=== PATIENT | female | born 1950 | race Caucasian/White ===

== ENCOUNTER 2017-01-02 11:31 | Emergency (ER) | payer MEDICARE ==
[~2017-01-02] VITALS: Ht 165.1 cm; Wt 61.3 kg
[~2017-01-02 11:31] MED LIST: KEP500TA PO; LOVA20TA PO; OXYB5TAB35 PO; VIT D PO
--- NOTE | 2017-01-02 11:33 | ED.REPORT ---
HPI-Seizure Date of Service Jan 02, 2017 ED Provider: Dr. Rao Almazan MD A 66 year old female with a history of seizure disorder, beginning Alzheimer's, low-grade glioma s/p left frontal craniotomy and R breast cancer s/p mastectomy presents to the ED via EMS after a reported seizure that occurred just prior to arrival. The seizure lasted approx. 20 seconds according to patient's daughter. Seizure characteristics include rigidity, foaming at the mouth and dyspnea. Patient was post-ictal for approx. 5 minutes following the episode and the after affects have lasted longer than previous seizures. Recent symptoms over the past week also include hypersomnia and decreased appetite. Patient is currently complaining of fatigue. Daughter reports that the patient's last seizure was in May. She reportedly missed her dose of Keppra last night and has not had any for 24 hours. Nursing Notes Stated Complaint: SEIZURE Nursing Notes Reviewed: Yes Allergies: Coded Allergies: No Known Allergies (Unverified , 04/10/16) Scheduled ([Vit D]) 2,000 IU PO DAILY Levetiracetam (Keppra) 500 Mg Tablet 500 MG PO BID Lovastatin (Lovastatin) 20 Mg Tablet 20 MG PO HS Oxybutynin Chloride ER (Ditropan XL) 5 Mg Tab.er.24 5 MG PO DAILY General Time Seen by Provider: 11:33 Chief Complaint Chief Complaint: Seizure, generalized Hx Obtained From: Patient, Daughter, EMS Arrived By: Ambulance Onset Occurred: Just prior to arrival Symptom Duration: 1 - 15 minutes Progression Since Onset: Gradually improving Associated with: Reports: Confusion post-seizure, Disoriented post-seizure Pertinent Negative: Pt denies other symptoms Recent Healthcare: No recent doctor visit, No recent hospitalization Past Medical History Past Medical History Breast Cancer s/p right mastectomy in February 1990/ chemotherapy/ tamoxifen 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) PCV chemotherapy,carboplatin, and underwent 2nd left frontal craniotomy She has remained free of recurrence from both breast cancer and brain cancer (01/14/15) Seizures Past Surgical History Right mastectomy (1989) Left frontal craniotomy (1991) Smoking History Never Smoker Social History Other Social History: Good social support, Local resident Review of Systems Hypersomnia Decreased appetite Foaming at the mouth during episode Constitutional: Denies: Chills, Fever Respiratory: Reports: Shortness of breath (Dyspnea during episode ) Cardiovascular: Denies: Chest pain Neurologic: Reports: Seizure, Shaking Complete sys rev & neg: except as marked. Physical Exam Initial Vital Signs Vital Signs (First) Date Time Temp Pulse Resp B/P Pulse Ox O2 Delivery O2 Flow Rate FiO2 01/02/17 11:40 36.4 96 13 115/63 97 Room Air Initial VS: Reviewed Head / Eyes: Atraumatic, Normocephalic, PERRL Extremities: Vascular intact, Neuro intact, No swelling, No tenderness Skin: Warm, Dry, No cyanosis General/Constitutional: Awake GENERAL: Post ictal Slow to answer and slow to follow commands Neck: Atraumatic, Supple Respiratory / Chest: Atraumatic, Breath sounds NL, Breath sounds = bilat, No respiratory distress Cardiovascular: Heart rate NL, Regular rhythm, Heart sounds NL Mental Status: Positive: Disoriented to place, Disoriented to time NEURO: Oriented x1 ENT: Atraumatic, Airway patent, Mucous membranes moist, Pharynx NL Interpretation & Diagnostics C-SPINE CT w/o contrast Read by Radiology IMPRESSION: No fracture. Dictated by: Tere Morton M.D. on 01/02/2017 at 12:[address] HEAD w/o contrast Read by Radiology IMPRESSION: 1. Increased, small amount of hemorrhage into the left frontal resection cavity. Findings discussed with Isidro Almazan on 01.02.17 at 1635 hrs. Dictated by: Tere Morton M.D. on 01/02/2017 at 16:33 Lab Results Interpretation Result Diagram: 01/02/17 1145 01/02/17 1145 Test 01/02/17 11:45 White Blood Count 9.0th/mm3 (3.8-10.1) Red Blood Count 4.57mil/mm3 (3.90-5.20) Hemoglobin 13.5g/dL (12.0-15.6) Hematocrit 40.6% (35.0-46.0) Mean Corpuscular Volume 88.8fL (81-100) Mean Corpuscular Hemoglobin 29.5pg (27.0-35.0) Mean Corpuscular Hemoglobin Concent 33.3% (32.0-37.0) Red Cell Distribution Width 12.5% (12.3-15.4) Platelet Count 272bil/L (150-400) Neutrophils (%) (Auto) 32.3% (40-74) Lymphocytes (%) (Auto) 57.6% (14-46) Monocytes (%) (Auto) 8.3% (4-12) Eosinophils (%) (Auto) 1.2% (0-5) Basophils (%) (Auto) 0.3% (0-3) Prothrombin Time 10.0sec (8.1-12.5) Prothromb Time International Ratio 0.94ratio Sodium Level 142mEq/L (134-144) Potassium Level 3.8mEq/L (3.5-5.2) Chloride Level 101mEq/L (97-108) Carbon Dioxide Level 12mmol/L (18-29) Blood Urea Nitrogen 12mg/dL (8-27) Creatinine 0.92mg/dL (0.57-1.00) Estimat Glomerular Filtration Rate 87mL/min (>59) Glucose Level 133mg/dL (60-99) Calcium Level 9.9mg/dL (8.5-10.1) Magnesium Level 2.3mg/dL (1.6-2.6) Total Bilirubin 0.5mg/dL (0.0-1.2) Aspartate Amino Transf (AST/SGOT) 23U/L (0-50) Alanine Aminotransferase (ALT/SGPT) 12U/L (0-32) Alkaline Phosphatase 80U/L (25-165) Total Protein 7.4g/dL (6.4-8.4) Albumin 4.2g/dL (3.4-5.0) ECG Interpretation ECG Interpretation: Sinus Rhythm Rate 91 bpm Low extremity and precordial leads Abnormal R-wave progression Time: 12:17 Interpreted by: ED physician X-Ray Chest Interpretation Chest Xray Interpretation: IMPRESSION: 1. Moderate hiatal hernia. 2. No acute process. Dictated by: Tere Morton M.D. on 01/02/2017 at 13:13 Interpretation / Wet Read by: Interpret - Radiologist CT Head Interpretation IMPRESSION: 1. Small high density focus within the right medial basal ganglia. Finding may represent basal ganglia calcification, but given the asymmetry, hemorrhage versus hemorrhagic metastasis may also be present. 2. Postsurgical sequelae. 3. Findings discussed with Isidro Almazan on 3.26.17 at 1235 hrs. Dictated by: Tere Motron M.D. on 01/02/2017 at 12:31 Study: Head CT no contrast Interpretation / Wet Read by: Interpret - Radiologist Re-Eval/Medical Decision Med Decision/Clinical Course 66-year-old female with a history of low-grade glioma brain cancer treated approximately 20 years ago with 2 surgeries, radiation, and chemotherapy with to subsequent seizures presents after a 30 second seizure in a post ictal state. The seizure resolved spontaneously. Her daughter witnessed the event and notes that she went rigid, stopped breathing, and foamed out of the mouth . Her daughter notes that she has been out of her Keppra for approximately 24 hours and she takes 500 mg twice a day. The radiologist called me after her CT scan was some concern for a small high density focus within the right medial basal ganglia that may represent a basal ganglia calcification but given the asymmetry hemorrhage versus hemorrhagic metastasis could also be present. I discussed these findings with Dr. Marin, neurosurgeon at [facility] who felt that bleeding was less likely and recommended a repeat CT scan in [address] scan showed increased, small amount of hemorrhage into the left frontal resection cavity and the area of concern that was initially seen was stable. I discussed these findings with Dr. Marin who recommended the patient be admitted for observation and was willing to accept the transfer as we do not have neurosurgery backup at [facility]. I also spoke with the ER doctor to give report on the patient. Throughout her ER stay her post ictal state slowly resolved but she then began complaining of headache. She was treated with Tylenol and sent via ALS to [facility]. All of these findings were discussed with the patient and her daughter and they were in agreement with the plan. Vitals remained stable while in the ER and patient had no respiratory compromise. Re-Evaluation/Progress #1: Time of Eval: 13:05 Patient Status: Condition improved Re-Evaluation/Progress Note: Patient's family is informed of the plan after consulting with radiology and [facility]. Re-Evaluation/Progress #2: Time of Eval: 14:08 Patient Status: Condition improved Re-Evaluation/Progress Note: Patient is rechecked and informed of the updated treatment plan. Re-Evaluation/Progress #3: Time of Eval: 17:27 Re-Evaluation/Progress Note: Patient is alert and responsive. She is currently complaining of a headache. She is informed of the updated CT scan results. Re-Evaluation/Progress #4: Time of Eval: 17:34 Patient Status: Condition improved Re-Evaluation/Progress Note: Patient's family is informed of the plan to transfer to [facility]. All of the patient's questions are adressed. They understand and agree with the treatment plan. Consultation #1: Call Returned at: 13:07 Learning And Development Officer: Agrees with eval, Agrees with plan Note: [facility] ED contacted Consultation #2: Consulted With: Neurosurgery Call Returned at: 13:43 Learning And Development Officer: Agrees with eval, Agrees with plan Note: Dr. Marin recommends re-image in 4-6 hrs. If negative, she may be discharged or admitted for observation. Does not believe bleed in this area is likely after reviewing imaging. Neurosurgery is not indicated at this time. Consultation #3: Referral / Consult Name: [facility] Consulted With: Neurosurgery Call Returned at: 17:28 Learning And Development Officer: Will see patient, Agrees with eval, Agrees with plan, Accepts admit Note: Dr. Cintron (ER) accepts admit after reviewing imaging Dr. Cunningham agrees to consult after reviewing imaging Counseled Regarding: Diagnosis, Lab results, Need for transfer Discharge & Departure Impression: Primary Impression: Subarachnoid hemorrhage Additional Impressions: History of brain cancer Seizure Head ache Headache type: unspecified Headache chronicity pattern: acute headache Intractability: not intractable Qualified Code: R51 - Headache Disposition: Transfer, Acute Care Facility (Formerly [facility]) Discharge Condition All VS Reviewed: Yes Condition: Stable Referrals: Melisa Vera MD (PCP) Crit Care Except Billable Proc Time Spent: 30-74 minutes, 195-224 minutes Services Performed: Patient management by me, Time spent at bedside, Reviewing test results, Reviewing imaging, Discussing patient care, Documentation in record, Time with fam/surrogate Scribe Attestation Portions of this note were transcribed by Emelyn Navas. I, Dr. Almazan personally performed the history, physical exam and medical decision-making; I reviewed and confirmed the accuracy of the information in the transcribed note. Signed by: Mike Triana, 01/02/17 1800. copies to: Melisa Vera MD, Gary R DO Jan 02, 2017 11:33 EMELYN NAVAS Jan 02, 2017 11:51
[2017-01-02 11:40] VITALS: BP 115/63; PULSE 96; RESP 13; O2SAT 97
[2017-01-02] MEDS ORDERED: levETIRAcetam Inj 1,000 MG in IV Premix 1 EACH IV ONE (12:00)
--- NOTE | 2017-01-02 12:23 | DRSVH ---
PROCEDURE: CT CERVICAL SPINE WITHOUT CONTRAST ([id number]) INDICATIONS: seizure, h/o brain ca, hit head TECHNIQUE: Noncontrast 3 mm thick sections acquired from the skull base to the T4 level. Sagittal and coronal r eformats were then constructed. For radiation dose reduction, the following was used: automated exp osure control, adjustment of mA and/or kV according to patient size. COMPARISON: None. FINDINGS: Image quality: Excellent. Bones: No fractures or dislocations. Visualized superior ribs are intact. Soft tissues: Prevertebral soft tissues are normal in thickness. No paravertebral hematomas. No ap ical pneumothoraces. IMPRESSION: No fracture. Dictated by: Tere Morton M.D. on 01/02/2017 at 12:17 Approved by: Tere Morton M.D. on 01/02/2017 at 12:21
--- NOTE | 2017-01-02 12:36 | DRSVH ---
PROCEDURE: CT BRAIN WITHOUT CONTRAST ([id number]) INDICATIONS: seizure, h/o brain ca TECHNIQUE: Noncontrast 4.5 mm thick angled axial sections acquired from the foramen magnum to the vertex, with c oronal reformats. COMPARISON: [facility], MR, MR BRAIN W&WO CON, 02/03/2016, 8:37. FINDINGS: Image quality: Excellent. CSF spaces: Basal cisterns are patent. Change in resection cavity involving the left anterior fronta l lobe. The ventricles are symmetric in size and shape. Brain: Left frontal encephalomalacia adjacent to the resection cavity is present, as before. 9 mm reg ion of high density within the right basal ganglia is present. There is cerebral volume loss for age, with resultant ventricular and sulcal prominence. There are periventricular and deep white matter c hronic small vessel ischemic changes. There is intracranial internal carotid artery atherosclerosis. Skull and face: Left frontal craniotomy has been performed. Calvarium and visualized facial bones ot herwise appear intact, without suspicious lesions. Sinuses: Visualized sinuses and mastoids are clear. IMPRESSION: 1. Small high density focus within the right medial basal ganglia. Finding may represent basal gangli a calcification, but given the asymmetry, hemorrhage versus hemorrhagic metastasis may also be presen t. 2. Postsurgical sequelae. 3. Findings discussed with Isidro Almazan on 01.02.17 at 1235 hrs. Dictated by: Tere Morton M.D. on 01/02/2017 at 12:31 Approved by: Tere Morton M.D. on 01/02/2017 at 12:35
[2017-01-02 12:41] LABS: BASOPHILS % (AUTO) 0.3 % (0-3); EOSINOPHILS % (AUTO) 1.2 % (0-5); MONOCYTES % (AUTO) 8.3 % (4-12); Mean Corpuscular Hemoglobin 29.5 pg (27.0-35.0); Mean Corpuscular Volume 88.8 fL (81-100); NEUTROPHILS % (AUTO) 32.3 % (40-74); Platelet Count 272 bil/L (150-400)
[2017-01-02 12:42] LABS: INR 0.94 ratio
[2017-01-02 12:50] LABS: Magnesium 2.3 mg/dL (1.6-2.6)
--- NOTE | 2017-01-02 13:15 | DRSVH ---
PROCEDURE: X-RAY CHEST ONE VIEW, PORTABLE ([id number]) INDICATIONS: seizure TECHNIQUE: One view of the chest was acquired. COMPARISON: None. FINDINGS: Surgical changes and devices: Right axilla surgical clips. Lungs and pleura: No pleural effusions or pneumothorax. Lungs are clear. Mediastinum: Moderate hiatal hernia. Mediastinal contours appear otherwise normal. Heart size is no rmal. Bones and chest wall: No suspicious bony lesions. Overlying soft tissues appear unremarkable. IMPRESSION: 1. Moderate hiatal hernia. 2. No acute process. Dictated by: Tere Morton M.D. on 01/02/2017 at 13:13 Approved by: Tere Morton M.D. on 01/02/2017 at 13:13
[2017-01-02 13:27] VITALS: BP 112/70; PULSE 80; RESP 18; O2SAT 99
[2017-01-02 15:22] VITALS: BP 109/51; PULSE 74; RESP 20; O2SAT 100
--- NOTE | 2017-01-02 16:38 | DRSVH ---
PROCEDURE: CT BRAIN WITHOUT CONTRAST ([id number]) INDICATIONS: f/u possible head bleed TECHNIQUE: Noncontrast 4.5 mm thick angled axial sections acquired from the foramen magnum to the vertex, with c oronal reformats. COMPARISON: [facility], MR, MR BRAIN W&WO CON, 02/03/2016, 8:37. [facility], CT, CT BRAIN WO CON, 01/02/2017, 12:08. FINDINGS: Image quality: Excellent. CSF spaces: Basal cisterns are patent. No extra-axial fluid collections. The ventricles are symmet roman in size and shape. Brain: Left frontal resection cavity is present, as before. Surrounding low density, consistent with vasogenic edema/encephalomalacia is unchanged. There is increased layering high density material with in the resection cavity measuring 9 mm thickness, which was previously attributed to thickened scar. Previously seen high density focus within the right basal ganglia is unchanged. There is cerebral vol ume loss for age, with resultant ventricular and sulcal prominence. There are periventricular and de ep white matter chronic small vessel ischemic changes. There is intracranial internal carotid artery atherosclerosis. Skull and face: Left frontal craniotomy. Calvarium and visualized facial bones otherwise appear inta ct, without suspicious lesions. Sinuses: Visualized sinuses and mastoids are clear. IMPRESSION: 1. Increased, small amount of hemorrhage into the left frontal resection cavity. Findings discussed w swati Almazan on 01.02.17 at 1635 hrs. Dictated by: Tere Morton M.D. on 01/02/2017 at 16:33 Approved by: Tere Morton M.D. on 01/02/2017 at 16:36
[2017-01-02 16:58] VITALS: BP 115/60; PULSE 70; RESP 16; O2SAT 98
[2017-01-02 18:10] VITALS: BP 115/60; PULSE 70; RESP 16; O2SAT 98
== END 2017-01-02 18:11 | disposition short-term general hospital (02) ==
LOC: SED 11:31
DX: I60.9 Nontraumatic subarachnoid hemorrhage, unspecified (principal); G40.909 Epilepsy, unspecified, not intractable, without status epilepticus; Z85.841 Personal history of malignant neoplasm of brain; Z90.09 Acquired absence of other part of head and neck; Z85.3 Personal history of malignant neoplasm of breast; Z90.11 Acquired absence of right breast and nipple
CPT/HCPCS: 36415; 70450; 71010; 72125; 80053; 80299; 83735; 85025; 85610; 93005; 96374; 99291; 99292; J1953

== ENCOUNTER 2017-02-07 11:20 | Inpatient (IN) | payer MEDICARE ==
[~2017-02-07] VITALS: Ht 157.5 cm; Wt 59.7 kg
[2017-02-07] VITALS (19 sets, daily range): BP systolic 97–142; BP diastolic 53–110; PULSE 55–73; RESP 12–30; O2SAT 95–100
--- NOTE | 2017-02-07 11:23 | ED.REPORT ---
HPI-Neurologic Deficit Date of Service February 07, 2017 ED Provider: Dr. Kraus Pt is a 66 y/o female w/ a hx of breast and brain CA s/p surgical interventions , reportedly in remission since 2014, significant dementia, presenting to the ED with her son-in-law c/o shakiness onset today. Per the son, there has been no seizure-like activity today although he has observed labored breathing and saying it hurts to swallow. The patient does not want to answer questions at time of interview but eventually reports moderate-severe chest heaviness/pain, nausea, and shortness of breath. She denies diarrhea, dysuria, vomiting, headache, fever, cough, focal numbness or weakness, speech changes, vision changes. The patient slept most of the day yesterday which is unusual. She was seen here on January 02 and was found to have a SAH and was transferred to [facility]. Per the Son-in-law, due to the SAH she does not take aspirin and is not on anticoagulants. Nursing Notes Stated Complaint: SEIZURE,HEAD Nursing Notes Reviewed: Yes Allergies: Coded Allergies: No Known Allergies (Unverified , 04/10/16) Scheduled ([Vit D]) 2,000 IU PO DAILY Levetiracetam (Keppra) 500 Mg Tablet 500 MG PO BID Lovastatin (Lovastatin) 20 Mg Tablet 20 MG PO HS Oxybutynin Chloride ER (Ditropan XL) 5 Mg Tab.er.24 5 MG PO DAILY General Time Seen by Provider: 11:25 Chief Complaint Other (shaking) Hx Obtained From: Patient, Son Arrived By: Walk-in Sudden in Onset?: No Onset Occurred: 1 - 4 hours ago Symptom Duration: Since onset Progression Since Onset: Constant Location: : Chest Quality: Heaviness Severity: Current: Moderate Severity: Maximum: Moderate Past Medical History Past Medical History Breast Cancer s/p right mastectomy in February 1990/ chemotherapy/ tamoxifen 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) PCV chemotherapy,carboplatin, and underwent 2nd left frontal craniotomy She has remained free of recurrence from both breast cancer and brain cancer (01/14/15) Seizures Past Surgical History Right mastectomy (1989) Left frontal craniotomy (1991) Smoking History Never Smoker Social History Other Social History: Good social support, Local resident Ambulatory Status Independent Review of Systems Constitutional: Reports: Fatigue, Denies: Chills, Fever Respiratory: Reports: Shortness of breath, Denies: Non-productive cough Cardiovascular: Reports: Chest pain GI: Reports: Dysphagia, Nausea, Denies: Abdominal pain, Diarrhea, Vomiting Neurologic: Reports: Shaking, Denies: Confusion, Problem walking, Seizure, Slurred speech, Spinning sensation, Unable to speak, Vision change Complete sys rev & neg: except as marked. Male: Denies Dysuria, Denies Flank pain Physical Exam Initial Vital Signs Vital Signs (First) Date Time Temp Pulse Resp B/P Pulse Ox O2 Delivery O2 Flow Rate FiO2 02/07/17 11:30 69 20 142/94 100 Nasal Cannula 02/07/17 11:31 35.8 02/07/17 13:15 4 Initial VS: Reviewed, Vital signs abnormal Abdomen / GI: Soft, Non-tender Extremities: Vascular intact, Neuro intact, No swelling Skin: Warm, Dry, No cyanosis General/Constitutional: Awake, Cooperative Alertness: Positive: Confused Distress / Hydration: Positive: Distress moderate Appearance / Presentation: Positive: In pain, Uncomfortable Head / Eyes: Atraumatic, Normocephalic, PERRL Respiratory / Chest: Breath sounds NL, Breath sounds = bilat, No respiratory distress, No rales, No rhonchi, No wheezing, No retractions, No stridor Cardiovascular: Heart rate NL, Regular rhythm, Heart sounds NL, No gallop, No murmurs, No rubs, Peripheral circulation NL Neurologic: Speech NL, No motor deficits, No sensory deficits Mental Status: Positive: Confused Tremulous Interpretation & Diagnostics Lab Results Interpretation Result Diagram: 02/07/17 1142 02/07/17 1142 Test 02/07/17 11:42 02/07/17 11:43 White Blood Count 9.3th/mm3 (3.8-10.1) Red Blood Count 4.51mil/mm3 (3.90-5.20) Hemoglobin 13.5g/dL (12.0-15.6) Hematocrit 39.2% (35.0-46.0) Mean Corpuscular Volume 86.9fL (81-100) Mean Corpuscular Hemoglobin 29.9pg (27.0-35.0) Mean Corpuscular Hemoglobin Concent 34.4% (32.0-37.0) Red Cell Distribution Width 12.7% (12.3-15.4) Platelet Count 268bil/L (150-400) Neutrophils (%) (Auto) 65.0% (40-74) Lymphocytes (%) (Auto) 28.1% (14-46) Monocytes (%) (Auto) 6.1% (4-12) Eosinophils (%) (Auto) 0.3% (0-5) Basophils (%) (Auto) 0.3% (0-3) Prothrombin Time 10.0sec (8.1-12.5) Prothromb Time International Ratio 0.94ratio Activated Partial Thromboplast Time 21.5sec (22.8-33.0) D-Dimer < 0.50mg/L FEU (<0.50) Sodium Level 141mEq/L (134-144) Potassium Level 3.6mEq/L (3.5-5.2) Chloride Level 101mEq/L (97-108) Carbon Dioxide Level 19mmol/L (18-29) Blood Urea Nitrogen 11mg/dL (8-27) Creatinine 0.78mg/dL (0.57-1.00) Estimat Glomerular Filtration Rate 105mL/min (>59) Glucose Level 151mg/dL (60-99) Calcium Level 9.4mg/dL (8.5-10.1) Total Bilirubin 0.6mg/dL (0.0-1.2) Aspartate Amino Transf (AST/SGOT) 25U/L (0-50) Alanine Aminotransferase (ALT/SGPT) 13U/L (0-32) Alkaline Phosphatase 79U/L (25-165) Troponin T 0.095ug/L (0.0-0.011) Total Protein 7.1g/dL (6.4-8.4) Albumin 4.5g/dL (3.4-5.0) Hold Buckley Top Tube Received (Received) ECG Interpretation ECG Interpretation: 3 EKGs were taken in quick succession to attempt to obtain higher quality tracing. EKGs are taken in the presence of chest pain. 1. Sinus rhythm. Severe motion artifact - ST elevation V2, V3, V4 2. Sinus rhythm. ST elevation V2, V3, V4. Inferior leads may have ST depression but not able to be evaluated due to severe motion artifact. 3. Sinus rhythm. Minor ST elevation with ST depressions inferiorly Findings are new compared to EKG taken 01/02/17 Time: 11:43 Interpreted by: ED physician ECG Interpretation: Sinus rhythm rate 86 ST elevation in V2,V3,V4 with ST depression inferiorly No significant increase from prior Time: 13:13 Interpreted by: ED physician X-Ray Chest Interpretation Chest Xray Interpretation: IMPRESSION: No acute pulmonary process. Dictated by: Michelle Horton M.D. on 02/07/2017 at 12:02 Approved by: Michelle Horton M.D. on 02/07/2017 at 12:02 View: Portable, 1 view Interpretation / Wet Read by: Interpret - Radiologist CT Head Interpretation IMPRESSION: 1. No acute intracranial hemorrhage. 2. Postoperative changes involving the left frontal region with a large extra-axial fluid collection is similar to prior studies. 3. Extensive chronic small vessel ischemic changes and areas of encephalomalacia within the bilateral frontal lobes, predominately. Dictated by: Conor Blanco M.D. on 02/07/2017 at 11:56 Approved by: Conor Blanco M.D. on 02/07/2017 at 12:01 Study: Head CT no contrast Interpretation / Wet Read by: Interpret - Radiologist Re-Eval/Medical Decision Med Decision/Clinical Course This is a rather complicated case. Initial presentation was for seizure activity though this demented patient actually is reporting chest pain and whole body shaking. EKG was performed with a severe baseline artifact however there were some concerning ST changes, and a total of 4 EKGs were performed. Cardiology was contacted very early on in patient presentation and reviewed EKGs as well as patient's comorbidities and at the time of that indication the fact that reportedly the patient had a subarachnoid hemorrhage within the last few months and sent to [facility]. Ultimately after the patient's daughter arrived at the bedside Information came to light, and it seems that [facility] had not noted any acute bleeding according to the daughter. Multiple attempts were made to get records from [facility] however there prolonged and unforeseen delay in obtaining these. Ultimately it seems that after reviewing records the patient was deemed to be stable from a neurologic perspective and not thought to have had acute bleeding, additionally CT today is unremarkable of the brain. At the time the daughter had arrived in new information became available cardiology was immediately contacted and arrived very promptly to the bedside to rediscuss and alter the plan of care as information and come to light. Ultimately the patient is taken to the Dental Therapist. She received fentanyl and had some modest relief in her pain however continue to have ongoing chest pain was unrelieved by nitroglycerin with an elevated troponin. Strong concern for non-ST elevation IN. Source of Hx: Old records, Family Summary of Info: Anticoagulants and antiplatelets not given due to recent subarachnoid hemorrhage. Medical records from [facility] obtained at 13:50 confirm no interval change in CT head imaging [address] scan at [facility] with an interpretation of "The right basal ganglia hyperdensity questioned on the outside exam is compatible with mineralization and unchanged. No intraperenchymal hemorrhage. Compared with outside exam from January 02, there is decreased prominence of layering hyperdense material in the cystic resection cavity in the left frontal lobe likely representing a small amount of blood. No new intracranial hemorrhage". She was followed overnight in the neurological ICU at which time there were no changes in neurological function. Re-Evaluation/Progress #1: Time of Eval: 11:40 Patient Status: Mild relief Re-Evaluation/Progress Note: Attempting to calm the patient and give Fentanyl in order to obtain a higher quality EKG. First EKG raises concern for acute IN. Re-Evaluation/Progress #2: Time of Eval: 11:47 Re-Evaluation/Progress Note: Pt rechecked. Informed pt and son of possible acute IN. Inhalation Therapy Aides Teacher coming down to see her. Re-Evaluation/Progress #3: Time of Eval: 11:50 Re-Evaluation/Progress Note: Pt rechecked. Informed son of plan for hospitalization and further workup. Code status was brought up but it has not been discussed in the past. Re-Evaluation/Progress #4: Time of Eval: 11:57 Re-Evaluation/Progress Note: Pt rechecked. Informed pt of need for admission. Pt understands and agrees with plan for admission. All questions addressed. Code status discussed: FULL CODE Re-Evaluation/Progress #5: Time of Eval: 13:02 Re-Evaluation/Progress Note: In initial discussion with son-in-law at the time of patient arrival, he stated that she experienced a SAH and is not supposed to be on aspirin or take anticoagulants. The daughter is now here and states that [facility] believed the area that was thought to be a SAH was merely a calcification therefore the patient was discharged within 24 hours. Awaiting records from [facility]. Will obtain another EKG and consult cardiology. Consultation : Referral / Consult Name: Fantasma Rodríguez MD Consulted With: Cardiology Call Returned at: 11:44 Virtualization Consultant: Will see patient, Agrees with eval, Agrees with plan, Accepts admit Note: Will come to the ED. 11:48 - Dr. Ocampo in department. Believes the patient is not a good candidate for cardiac intervention given her comorbidities and recent SAH. 13:10 - Discussed the recent case update regarding the possibility that the SAH was merely a calcification. Recommends to give heparin and aspirin at this point. 13:26 - Will evaluate the patient - accepts to rn labor delivery Counseled Regarding: Diagnosis, Lab results, Need for admission Discharge & Departure Impression: Primary Impression: NSTEMI (non-ST elevated myocardial infarction) Disposition: ADMITTED TO HOSPITAL Discharge Condition All VS Reviewed: Yes Condition: Improved Referrals: Melisa Vera MD (PCP) Crit Care Except Billable Proc Time Spent: 75-104 minutes Services Performed: Patient management by me, Time spent at bedside, Reviewing test results, Reviewing imaging, Discussing patient care, Documentation in record, Time with fam/surrogate Critical Care Notes: See MDM Scribe Attestation Portions of this note were transcribed by Jorge Hays. I, Dr. Kraus personally performed the history, physical exam and medical decision-making; I reviewed and confirmed the accuracy of the information in the transcribed note. Signed by Mike Vasquez, 02/07/17 - [id number] copies to: Melisa Vera MD, Timothy S DO February 07, 2017 11:23 JORGE HAYS February 07, 2017 11:31
[2017-02-07] MEDS ORDERED: Ondansetron 2 mg/mL 2 mL Inj ONE (11:26)
[2017-02-07] MEDS ORDERED: 0.9% Sodium Chloride 1,000 ML IV ONE (11:29)
[2017-02-07] MEDS ORDERED: Ondansetron 2 mg/mL 2 mL Inj IVPUSH PRN ×3 (11:30→16:35)
[2017-02-07] MEDS ORDERED: fentaNYL-PF 50 mCg/mL 2 mL Inj ONE ×2 (11:35→14:08)
[2017-02-07] MEDS ORDERED: fentaNYL-PF 50 mCg/mL 2 mL Inj IVPUSH PRN (11:40)
[2017-02-07 11:47] LABS: BASOPHILS % (AUTO) 0.3 % (0-3); EOSINOPHILS % (AUTO) 0.3 % (0-5); MONOCYTES % (AUTO) 6.1 % (4-12); Mean Corpuscular Hemoglobin 29.9 pg (27.0-35.0); Mean Corpuscular Volume 86.9 fL (81-100); Platelet Count 268 bil/L (150-400)
[2017-02-07 12:02] LABS: INR 0.94 ratio
--- NOTE | 2017-02-07 12:04 | DRSVH ---
PROCEDURE: X-RAY CHEST ONE VIEW, PORTABLE ([id number]) INDICATIONS: chest pain TECHNIQUE: One view of the chest was acquired. COMPARISON: [facility], CR, XR CHEST 1VW (PORTABLE), 01/02/2017, 11:53. FINDINGS: Surgical changes and devices: Clips are present overlying the right chest wall. Lungs and pleura: No pleural effusions or pneumothorax. Lungs are clear. Mediastinum: Mediastinal contours appear normal. Heart size is normal. Bones and chest wall: No suspicious bony lesions. Overlying soft tissues appear unremarkable. IMPRESSION: No acute pulmonary process. Dictated by: Michelle Horton M.D. on 02/07/2017 at 12:02 Approved by: Michelle Horton M.D. on 02/07/2017 at 12:02
[2017-02-07 12:44] LABS: TROPONIN T 0.095 ug/L (0.0-0.011)
[2017-02-07] MEDS ORDERED: Nitroglycerin 2% 1 Gm Ointment TOPICAL ONE ×2 (12:45→20:50)
--- NOTE | 2017-02-07 13:03 | DRSVH ---
PROCEDURE: CT BRAIN WITHOUT CONTRAST ([id number]) INDICATIONS: Stroke TECHNIQUE: Noncontrast 4.5 mm thick angled axial sections acquired from the foramen magnum to the vertex, with c oronal reformats. COMPARISON: [facility], MR, MR BRAIN W&WO CON, 02/03/2016, 8:37. [facility], CT, CT BRAIN WO CON, 01/02/2017, 12:08. [facility], CT, CT BRAIN WO CON, 01/02/2017, 16:1 6. FINDINGS: Image quality: Diagnostic. Brain: There is no acute intra-axial or extra-axial hemorrhage. Postoperative changes involving the left frontal lobe are again evident. There is a large extra-axial fluid collection exerting mild mas s effect on the adjacent soft tissues, which is unchanged in size and measures approximately 6.6 x 3. 8 cm (image 16, series 2). Mild increased attenuation along the periphery of this fluid collection i s noted. No new extra-axial fluid collections are identified. There is no midline shift or mass eff ect. The orbits are grossly unremarkable. No large areas of diffusely decreased attenuation are evident within the brain to suggest diffuse cer ebral edema. Large areas of low-attenuation within the periventricular white matter of the supratent orial brain is more prominent involving the bilateral frontal lobes, similar to the prior study. Enc ephalomalacia is noted within the bilateral frontal lobes. Calcifications involving the right basal ganglia are similar to previous studies. The ventricles and cortical sulci are age-appropriate. Bones: Postoperative changes related to left frontal craniotomy are noted. Calvarium and visualized facial bones are grossly intact. The imaged paranasal sinuses and mastoid air cells are clear. IMPRESSION: 1. No acute intracranial hemorrhage. 2. Postoperative changes involving the left frontal region with a large extra-axial fluid collection is similar to prior studies. 3. Extensive chronic small vessel ischemic changes and areas of encephalomalacia within the bilatera l frontal lobes, predominately. Dictated by: Conor Blanco M.D. on 02/07/2017 at 11:56 Approved by: Conor Blanco M.D. on 02/07/2017 at 12:01
[2017-02-07] MEDS ORDERED: Heparin 5,000 Unit/mL Inj IVPUSH ONE ×2 (13:20→13:40)
[2017-02-07] MEDS ORDERED: Heparin 25K Unit/500mL 0.45 NS 25,000 UNIT in IV Premix 1 EACH IV ONE ×2 (13:20→13:40)
[2017-02-07] MEDS ORDERED: Heparin 5,000 Units/500 mL NS Premix IV ONE (13:44)
[2017-02-07] MEDS ORDERED: NitroPRUSSIDE 25,000 mCg/mL 2 mL Inj IV ONE (13:44)
[2017-02-07] MEDS ORDERED: Heparin 1,000 Unit/mL 10 mL Inj ONE (13:44)
[2017-02-07] MEDS ORDERED: Nitroglycerin 50,000 mcg/250 mL D5W Premix IV ONE (13:44)
[2017-02-07] MEDS ORDERED: Heparin 1,000 Units/500 mL NS Premix IV ONE (13:44)
[2017-02-07] MEDS ORDERED: 0.9% Sodium Chloride 0 ML ONE (13:46)
[2017-02-07] MEDS ORDERED: 0.9% Sodium Chloride 1,000 ML ONE (13:46)
--- NOTE | 2017-02-07 15:54 | PCM.HPMED ---
Subjective Date of Service February 07, 2017 Primary Provider: Admitting Physician: Primary Care Physician: Melisa Vera MD Attending Physician: Fantasma Rodríguez MD Admit Status: From the Emergency Department Chief Complaint: Slurred speech, chest pain History of Present Illness: Patient is a 66-year-old female with a history of breast and brain cancer s/p surgical interventions, reportedly in remission since 2014, dementia, hyperlipidemia, and seizures who presented to the ED with the complaint of shakiness and voice changes that started earlier today. History obtained via chart review and the patient's daughter due to patient cooperation. Per the family, there has been no seizure-like activity today however patient was noted to have labored breathing and difficulty swallowing. In the ED, patient reported moderate-severe chest pressure and pain associated with nausea and shortness of breath. She denied fever, chills, focal weakness, vision changes, headache, GI or symptoms. Patient's daughter reports increasing fatigue and limited activity at home. She states that the patient is home alone during the day and has poor eating habits and requires prompting for the majority of her ADLs. Of note she presented to [facility] in December of this year and transferred to [facility] after CT head with evidence consistent with a subarachnoid hemorrhage. She was reportedly discharged the following day after negative workup for SAH. In the ED, Vitals: temp 35.8, BP 142/94, HR 69, RR 20, 100% on 4L nasal cannula ; Labs: wbc 9.3, Hgb 13.5, Hct 39.2, plts 268, sodium 141, potassium 3.6, chloride4 101, bicarb 19, BUN 11, creatinine 0.78, glucose 151, troponin 0.095, PT/INR 10.0/0.94. ECG sinus rhythm with rate of 86, ST elevation in V2,V3,V4 with ST depression interiorly new compared to prior EKG on 01/02/17. CXR showing no acute cardiopulmonary process and CT head with no acute intracranial findings. Admitted for further evaluation and management of NSTEMI. Review of Systems: Complete review of systems with the patient was attempted and incomplete due to patient's condition. Per the patient's daughter review of systems is negative except as above in the HPI. 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 Father with cardiovascular disease. Social History Hx Alcohol Use: No Hx Substance Use: No Smoking Status: Never Smoker Living Arrangement: with Family Exam Vital Signs Vital Sign - Last Date Time Temp Pulse Resp B/P Pulse Ox O2 Delivery O2 Flow Rate FiO2 02/07/17 15:40 68 12 116/67 96 Nasal Cannula 4.00 02/07/17 11:31 35.8 Exam General: Thin and pale elderly woman, minimally interactive, in no acute distress HEENT: Normocephalic, atraumatic. PERRLA, no scleral icterus, moist mucosa. Neck: Supple with full range of motion. No JVD, no bruits, lymphadenopathy or thyromegaly. Cardiovascular: Regular rate and rhythm with no murmurs, rubs, or gallops appreciated. Pulmonary: Clear to auscultation bilaterally with no crackles, wheezes, or rhonchi. Normal respiratory effort with no use of accessory muscles. Abdomen: Soft, nontender, nondistended no hepatosplenomegaly or masses appreciated. Bowel tones present. Extremities: No clubbing, cyanosis, edema, or lymphadenopathy appreciated. Skin: Normal temperature, turgor, and texture; no rash, ulcers, or subcutaneous nodules appreciated. Neurological: Cranial nerves grossly intact. No focal deficits appreciated. Psychiatric: Normal mood and affect, somewhat lethargic and opens eyes to voice but does not speak. Lab and Diagnostics Labs Laboratory Tests Test 02/07/17 11:42 02/07/17 11:43 White Blood Count 9.3th/mm3 (3.8-10.1) Red Blood Count 4.51mil/mm3 (3.90-5.20) Hemoglobin 13.5g/dL (12.0-15.6) Hematocrit 39.2% (35.0-46.0) Mean Corpuscular Volume 86.9fL (81-100) Mean Corpuscular Hemoglobin 29.9pg (27.0-35.0) Mean Corpuscular Hemoglobin Concent 34.4% (32.0-37.0) Red Cell Distribution Width 12.7% (12.3-15.4) Platelet Count 268bil/L (150-400) Neutrophils (%) (Auto) 65.0% (40-74) Lymphocytes (%) (Auto) 28.1% (14-46) Monocytes (%) (Auto) 6.1% (4-12) Eosinophils (%) (Auto) 0.3% (0-5) Basophils (%) (Auto) 0.3% (0-3) Prothrombin Time 10.0sec (8.1-12.5) Prothromb Time International Ratio 0.94ratio Activated Partial Thromboplast Time 21.5sec (22.8-33.0) D-Dimer < 0.50mg/L FEU (<0.50) Sodium Level 141mEq/L (134-144) Potassium Level 3.6mEq/L (3.5-5.2) Chloride Level 101mEq/L (97-108) Carbon Dioxide Level 19mmol/L (18-29) Blood Urea Nitrogen 11mg/dL (8-27) Creatinine 0.78mg/dL (0.57-1.00) Estimat Glomerular Filtration Rate 105mL/min (>59) Glucose Level 151mg/dL (60-99) Calcium Level 9.4mg/dL (8.5-10.1) Total Bilirubin 0.6mg/dL (0.0-1.2) Aspartate Amino Transf (AST/SGOT) 25U/L (0-50) Alanine Aminotransferase (ALT/SGPT) 13U/L (0-32) Alkaline Phosphatase 79U/L (25-165) Troponin T 0.095ug/L (0.0-0.011) Total Protein 7.1g/dL (6.4-8.4) Albumin 4.5g/dL (3.4-5.0) Hold Buckley Top Tube Received (Received) Result Diagram: 02/07/17 1142 02/07/17 1142 X-Rays, CTs and MRIs X-RAY CHEST ONE VIEW, PORTABLE IMPRESSION: No acute pulmonary process. Dictated by: Michelle Horton M.D. on 02/07/2017 at 12:02 Approved by: Michelle Horton M.D. on 02/07/2017 at 12:02 CT BRAIN WITHOUT CONTRAST IMPRESSION: 1. No acute intracranial hemorrhage. 2. Postoperative changes involving the left frontal region with a large extra- axial fluid collection is similar to prior studies. 3. Extensive chronic small vessel ischemic changes and areas of encephalomalacia within the bilateral frontal lobes, predominately. Dictated by: Conor Blanco M.D. on 02/07/2017 at 11:56 Approved by: Conor Blanco M.D. on 02/07/2017 at 12:01 Assessment & Plan 66 y/o female with a hx of breast and brain cancer s/p surgical interventions, reportedly in remission since 2014, dementia, hyperlipidemia, and seizures who presented to the ED with the complaint of shakiness and chest heaviness that started earlier today. Admitted for further evaluation and management of NSTEMI. Hospital day #1. 1. NSTEMI, acute. present on admission. Active. -EKG with ST depression inferior leads new from prior EKG. Troponin 0.095. Cardiology consulted and patient taken to the recyclable materials sorter from the ED. Now s/p LAD stents x3. -Cardiology is following, appreciate recommendations. -Will continue aspirin/plavix, statin, beta-viki and ACEi per Cardiology. 2. Seizure disorder, chronic. present on admission. Ongoing -CT head negative for acute process. -Continue home Keppra -Seizure precautions, monitor clinically 3. Hyperlipidemia, chronic. present on admission. Ongoing. -Continue home statin 4. Hyperglycemia without diagnosis of diabetes, present on admission. Active. -Patient's daughter denies history of diabetes. Serum glucose 151. -Follow CMP, check HbA1c 5. Dementia, chronic. present on admission. Ongoing -Patient lives locally with her daughter and reportedly needs assistance for nearly all ADLs -Social work consult placed to discuss resources and possible home health options. -Swallow evaluation ordered, history of dysphagia noted by family. PRN: Acetaminophen-fever/headache/mild/moderate pain Antiemetics, as needed Bowel regimen, as needed. Disposition: Patient was placed under observation with expected length of hospital stay less than 24 hours. . Pain Evaluation: Adequate Pain Control GI Prophylaxis: Not indicated VTE Prophylaxis: SCDs Resuscitation Status: CPR: Attempt Resuscitation Attending Statement The patient was seen and examined together with Dr. Mccain on 02/07/2017 and I agree with the history, exam and plan as outlined in the note above. . Cammy Mccain DO February 07, 2017 15:54 Steven Maxwell MD February 08, 2017 07:43 CODE STATUS: FEN: IVF: GI Prophylaxis: DVT Prophylaxis: Sub-q Heparin, 5,000units Q8h PRN: Acetaminophen-fever/headache/mild/moderate pain Antiemetics, as needed Bowel regimen, as needed. Disposition: Patient admitted under inpatient status with expected length of stay > 2 midnights for severity of present symptoms, complexities of treatment plan and risk for adverse event. Pain Evaluation: Adequate Pain Control Resuscitation Status: CPR: Attempt Resuscitation Cammy Mccain DO February 07, 2017 15:54 plan and risk for adverse event. Pain Evaluation: Adequate Pain Control Resuscitation Status: CPR: Attempt Resuscitation Cammy Mccain DO February 07, 2017 15:54 Disposition: Patient admitted under inpatient status with expected length of stay > 2 midnights for severity of present symptoms, complexities of treatment plan and risk for adverse event. Pain Evaluation: Adequate Pain Control Resuscitation Status: CPR: Attempt Resuscitation Cammy Mccain DO February 07, 2017 15:54 FEN: IVF: GI Prophylaxis: DVT Prophylaxis: Sub-q Heparin, 5,000units Q8h PRN: Acetaminophen-fever/headache/mild/moderate pain Antiemetics, as needed Bowel regimen, as needed. Disposition: Patient admitted under inpatient status with expected length of stay > 2 midnights for severity of present symptoms, complexities of treatment plan and risk for adverse event. Cammy Mccain DO February 07, 2017 15:54
[2017-02-07] MEDS ORDERED: Alum-Mag Hydrox-Simeth 30 mL Suspension PO PRN ×2 (16:35)
[2017-02-07] MEDS ORDERED: Polyethylene Glycol (PEG) 17 Gm Powder PO PRN (16:35)
--- NOTE | 2017-02-07 17:01 | CONS ---
[address] [address] CONSULTATION REPORT PATIENT: PATY MCDERMOTT : 1950 MR#: [id number] ADMIT: 02/07/2017 JOB ID: [id number] DATE OF SERVICE: 02/07/2017 REQUESTED BY: Derrell Kraus MD REASON FOR EVALUATION: Chest discomfort. HISTORY: The history was obtained from the patient and her daughter. She is a 66-year-old woman with history of breast cancer and brain cancer. The patient had brain surgery twice in the mid . She had seizure after the surgery. Her daily activity is quite limited. She is mostly lying in bed all day. When she walks, she walks very slowly. This morning, she woke up around 9:30 with chest discomfort. She said it felt like somebody sitting on her chest. She rated it about 9/10. It did not radiate. There were no associated symptoms. Due to concern of intracranial bleeding recently, CT scan of the head was performed and showed no acute intracranial hemorrhage. Postoperative change involving the left frontal region with a large extra-axial fluid collection. Extensive chronic small vessel ischemic changes and an area of encephalomalacia within the bilateral frontal lobes, predominantly. PAST MEDICAL HISTORY: 1. Right breast cancer, status post mastectomy, chemotherapy and radiation. 2. Brain tumor, status post brain surgery twice. 3. Seizure disorder. 4. Hypercholesterolemia. CURRENT MEDICATIONS: 1. Lovastatin 40 mg daily. 2. Citalopram 20 mg daily. 3. Levetiracetam 500 mg b.i.d. ALLERGIES: No known allergies. SOCIAL HISTORY: The patient lives with her daughter. She has never smoked or drank. FAMILY HISTORY: Both parents had heart disease. REVIEW OF SYSTEMS: All 10 systems are reviewed and pertinent for history of postural hypotension. The patient also has dementia. PHYSICAL EXAMINATION: Reveals a 66-year-old woman in no acute distress. Temperature is 35.8. Blood pressure is 103/91, pulse 67. Skin is warm and dry. Head and face have normal configuration. Anicteric sclerae. Moist mucosa. Neck supple. No jugular venous distention or carotid bruits. Chest: Normal expansion. Lungs are clear to auscultation. Heart: The first and second heart sounds normal. No gallop or murmur. Abdomen: Soft, nontender and without hepatosplenomegaly. Back: No CVA tenderness. Extremities: No clubbing, cyanosis, or edema. Neurology: Awake and oriented x3. BLOOD TESTS: Show hemoglobin 13.5, WBC 9.3, platelets 268. Sodium 141, potassium 3.6, chloride 101, bicarb 19, BUN 11, creatinine 0.78, glucose 151, AST 25, troponin T is 0.095. EKG shows sinus rhythm with borderline anterior ST-segment elevation with inferior ST depression. IMPRESSION: 1. Probable anterior myocardial infarction. 2. History of seizure disorder. 3. History of brain cancer. 4. History of breast cancer. 5. History of postural hypotension. PLAN: The patient will undergo coronary angiogram and possible percutaneous coronary intervention. The risks and benefits of the procedure have been explained to the patient and her daughter. They understand and agree to proceed with the procedure. YOSELIN
[2017-02-07] MEDS ORDERED: CITA20TA11 PO (17:44)
[2017-02-07] MEDS ORDERED: LOVA40TA PO (17:44)
[2017-02-07] MEDS: 0.9% Sodium Chloride 1,000 ML IV SCH ×2 (18:23→22:05)
--- NOTE | 2017-02-07 19:30 | DI95 ---
[address] [address] INTERVENTIONAL CARDIAC CATHETERIZATION PATIENT: PATY MCDERMOTT : 1950 MR#: [id number] ADMIT: 02/07/2017 JOB ID: [id number] DATE OF PROCEDURE: 02/07/2017 PATIENT PROFILE: The patient is a 66-year-old woman who presented with anterior myocardial infarction. The [id number] time is delayed due to concern of recent history of intracranial hemorrhage. PROCEDURE: 1. Retrograde left heart catheterization. 2. Selective coronary angiography. 3. Balloon angioplasty and stenting to the mid and distal left anterior descending. 4. Left ventricular angiogram. 5. Vascular closure with Perclose. COMPLICATIONS: None. METHOD: Retrograde left heart catheterization was performed from the right groin under 1% lidocaine local anesthesia using a 6-Algerian sheath. Selective coronary angiogram was performed in multiple projections, including cranial and caudal angulations with hand injected contrast via JL4 and 3DRC catheters. Heparin 100 units/kg and prasugrel 60 mg were given. A 6-Algerian JL4 guide was advanced to the left coronary ostium. A Run-through wire was placed inside the left anterior descending artery. The occluded mid left anterior descending artery lesion was predilated with a 2.0 x 15 mm balloon. After this lesion was opened, it appeared that the patient had another distal lesion. The distal lesion was also predilated with a 2.0 x 15 mm balloon. A Resolute Integrity 2.25 x 22 mm stent was placed in the distal left anterior descending artery lesion and deployed at 8 atmospheres for 20 seconds. A Resolute Integrity 2.5 x 14 mm stent was placed in the mid left anterior descending artery lesion and deployed at 12 atmospheres for 30 seconds. Nitroglycerin was given intracoronary. The flow in the left anterior descending artery is slow. A Mini-Vision 2.0 x 12 mm stent was placed distal to the first Resolute stent and deployed at 9 atmospheres for 30 seconds. Final angiogram was obtained. A 6-Algerian angulated pigtail catheter was advanced to the left ventricle and left ventricular angiogram was performed in the 30 degree GARCIA view by injecting contrast at the rate of 10 cc/second for 3 seconds. This catheter was withdrawn. Right femoral angiogram was performed before sheath removal. Hemostasis was achieved by using a Perclose device. The patient tolerated the procedure well. She was transferred to the [facility] in good condition. TOTAL CONTRAST USED: 130 cc. FLUOROSCOPY TIME: 10.9 minutes. TOTAL RADIATION DOSE: 791 milligray. RESULTS: 1. Selective coronary angiogram: a. The left main coronary artery is normal. b. The left anterior descending artery is occluded in the mid portion. There is minor calcification in the proximal portion. The first diagonal branch is moderate sized and has diffuse 30% stenosis. c. The circumflex artery has minor irregularity of 20% to 30% stenosis. d. The dominant right coronary artery has eccentric 60% stenosis in the proximal portion. 2. Balloon angioplasty and stenting was performed to the occluded mid left anterior descending artery and severe stenosis of the distal left anterior descending artery by deploying two drug-eluting stents and one bare metal stent to achieve an excellent angiographic result with GIGI 2 flow distally. 3. Left ventricular angiogram demonstrates moderately depressed left ventricular systolic function (visually estimated ejection fraction 35%). The apical 2/3 of the anterolateral wall, apex, and apical inferior wall are akinetic. The remaining segments contract normally. 4. There is no gradient across the aortic valve on catheter withdrawal. 5. Aortic pressure is 122/69 mmHg. The left ventricular pressure is 122/13 mmHg. 6. Left ventricular end-diastolic pressure is 28 mmHg. CONCLUSION: 1. Occluded mid left anterior descending artery. This was successfully treated with two drug-eluting stents and one bare metal stent. 2. 60% proximal right coronary artery stenosis. 3. Left ventricular ejection fraction 35%. 4. LVEDP is 28 mmHg. MTDD
[2017-02-07 20:38] LABS: Magnesium 1.8 mg/dL (1.6-2.6)
[2017-02-07 20:39] LABS: TROPONIN T 10.54 ug/L (0.0-0.011)
[2017-02-07] MEDS: levETIRAcetam 500 mg Tablet PO SCH (21:56)
[2017-02-08] VITALS (8 sets, daily range): BP systolic 92–109; BP diastolic 57–74; PULSE 64–74; RESP 16–20; O2SAT 94–97
[2017-02-08 00:04] LABS: TROPONIN T 4.52 ug/L (0.0-0.011)
[2017-02-08 04:14] LABS: BASOPHILS % (AUTO) 0.1 % (0-3); EOSINOPHILS % (AUTO) 0.1 % (0-5); MONOCYTES % (AUTO) 9.1 % (4-12); Mean Corpuscular Hemoglobin 29.9 pg (27.0-35.0); Mean Corpuscular Volume 88.6 fL (81-100); NEUTROPHILS % (AUTO) 72.5 % (40-74); Platelet Count 186 bil/L (150-400)
[2017-02-08 04:54] LABS: TROPONIN T 3.36 ug/L (0.0-0.011)
--- NOTE | 2017-02-08 09:42 | PROG NOTE ---
[address] [address] PROGRESS NOTE PATIENT: PATY MCDERMOTT : 1950 MR#: [id number] ADMIT: 02/07/2017 JOB ID: [id number] DATE: 02/08/2017 SUBJECTIVE: The patient is a 66-year-old woman who suffered a large anterolateral myocardial infarction yesterday. She underwent stent placement to the occluded mid left anterior descending artery. The patient reports feeling well today. She denies chest discomfort, shortness of breath, orthopnea, PND, palpitation, or syncope. OBJECTIVE: Temperature is 37.1. Blood pressure is 92/57. Pulse 64. Body weight is 59.7 kg. Head and face have normal configuration. Anicteric sclerae. Moist mucosa. Neck supple. No jugular venous distention. No carotid bruits. Chest: Normal expansion. Lungs are clear to auscultation. The first and second heart sound normal. No gallop or murmur. Abdomen: Soft, nontender. Right groin puncture site is excellent. Extremities: No clubbing, cyanosis, or edema. BLOOD TESTS: Show hemoglobin 10.8, WBC 8.7, platelets 186. Sodium 135, potassium 4.2, chloride 103, bicarb 18, BUN 11, creatinine 0.63, glucose 120. CK peaked at 2,974, with a troponin-I peaked at 10.54. Cholesterol 129, triglyceride 131, HDL 53, LDL 49, TSH 3.33. IMPRESSION: 1. Acute large anterolateral myocardial infarction. 2. Status post stent to the left anterior descending artery with three stents. 3. Left ventricular ejection fraction (LVEF) 35%. PLAN: Echocardiogram will be performed today. She could start to ambulate. I will continue on aspirin, Plavix, beta viki, NAVIN inhibitor, spironolactone, and statin. I anticipate the patient to be able to be discharged from the hospital tomorrow with the addition of anticoagulation for three months in order to prevent left ventricular thrombus. YOSELIN
[2017-02-08] MEDS: levETIRAcetam 500 mg Tablet PO SCH ×2 (09:43→20:26)
--- NOTE | 2017-02-08 13:24 | DRSVH ---
[facility] [address] [place] [address] Echocardiogram Report Name: PATY MCDERMOTT MStudy Date : 02/08/2017 Height: 62 in Hospital Exam Location: [facility] Weight: 132 lb Gender: Female BSA: 1. 6 m2 : 1950 Age: 66 yrs BP: 92/ 57 mmHg Reason For Study: POST STEMI Ordering Physician: Performed By: Heath Fontana Referring Physician: TORY LEONARD Interpretation Summary Normal left ventricle size with ejection fraction 30-35%. The apical 2/3 of anterior wall, septum and apex are akinetic. Mildly dilated left atrium. Mild to moderate tricuspid regurgitation. The right ventricular systolic pressure is estimated at 42 mmHg assuming a right atrial pressure of 15 mm Hg. Procedure: A two-dimensional transthoracic echocardiogram with color flow and Doppler was performed. The study quality was technically adequate. There is no prior echocardiogram noted for this patient. The patient was in normal sinus rhythm during the exam. The heart rate ranged between 63-74 bpm during the study. Left Ventricle: The left ventricle is normal in size. The ejection fraction is estimated to be 30-35%. There is anterior wall akinesis. There is septal wall akinesis. There is apical akinesis. There is apical inferior wall akinesis. There are no other obvious focal wall motion abnormalities. Assessment of diastolic parameters indicates a relaxation abnormality of the left ventricle, consistent with normal filling pressures. Right Ventricle: The right ventricle is normal in size, thickness and function. Atria: The left atrium is mildly dilated. Right atrial size is normal. The interatrial septum is intact with no evidence for an atrial septal defect. Mitral Valve: The mitral valve is normal. There is trace mitral regurgitation. Aortic Valve: The aortic valve is normal in structure and function. No aortic regurgitation is present. Tricuspid Valve: There is mild to moderate tricuspid regurgitation. The right ventricular systolic pressure is estimated at 42 mmHg assuming a right atrial pressure of 15 mm Hg. Pulmonic Valve: The pulmonic valve leaflets are thin and pliable; valve motion is normal. There is mild pulmonic regurgitation. Great Vessels: The aortic root is normal size. The dimensions of the ascending aorta are normal. The pulmonary artery is normal size. The IVC is dilated (diameter is greater than 2.1 cm) and it collapses less than 50% with a sniff. This suggests a high right atrial pressure of 15 mm Hg. Pericardium/ Pleura There is no pericardial effusion. There is no pleural effusion. MMode/2D Measurements & Calculations LVIDd: 4.2 cm RA long axis: 4.3 cm LVOT diam: 1.8 cm LVIDs: 2.9 cmLA A2 area: 15.3 cm AoV Openin.7 cm FS: 32.5 % LA A4 area: 21.3 cm RA area: 12.6 cm Ao root diam EPSS: 0.52 cmLA length (vol) RA vol: 31.2 ml IVSd: 1.00 cm RA : 19.5 ml/m2 asc Aorta Diam LVPWd LA vol: 58.9 ml : 0.9cm LA vol index Ao Arch Diam (Prox Trans): 2.6 cm IVC diam: 2.2 cm EDV(MOD-sp2) LV cruz. diameter/BSA LV sys. diameter/BSA RVD1 (basal) (cm/m^2): 2.7 (cm/m^2): 1.8 : 3.4 cm ESV(MOD-sp2) EF(MOD-sp2) RVD2 (mid) TAPSE: 2.1 cm : 2.4 cm Doppler Measurements & Calculations Ao V2 max MV E max micheal MV E/A: 0.89 TR max micheal : 94.8 cm/sec : 46.6 cm/sec Med Peak E' Micheal : 261.0 cm/sec Ao max PG MV A max micheal TR max P.3 mmHg : 3.6 mmHg : 52.4 cm/sec E/E' med: 8.9 Ao mean PG Lat Peak E' Micheal LVOT Max Micheal E/E' lat: 6.4 : 84.1 cm/sec E/e' average: 7.6 MV A dur: 0.10 sec MARCIN(I,D): 2.4 cm sev ratio MV dec time Ao V2 mean LV V1 max PG MARCIN indexed to BSA : 0.11 sec : 61.4 cm/sec (cm^2/m^2): 1.5 Ao V2 VTI LV V1 VTI: 17.0 cm MARCIN(V,D): 2.2 cm2 Electronically signed by: Tory Boyce on Reading Physician:02/08/2017 01:23 PM
[2017-02-08] MEDS: 0.9% Sodium Chloride 1,000 ML IV SCH ×2 (17:12→20:28)
--- NOTE | 2017-02-08 19:23 | PCM.PNMED ---
Subjective Date of Service February 08, 2017 Subjective Patient is a 66-year-old female with a history of breast and brain cancer s/p surgical interventions, reportedly in remission since 2015, dementia, hyperlipidemia, and seizures who presented to the ED with the complaint of shakiness, voice changes and chest pain that started earlier today. Admitted for further evaluation and management of NSTEMI. Hospital day #2. Transferred to [facility] in stable condition following cardiac stent placement. No acute events overnight. Today she is more alert and found sitting up in bed eating breakfast. She is communicating appropriately and is without complaint. Exam Vital Signs Vital Sign - Last Date Time Temp Pulse Resp B/P Pulse Ox O2 Delivery O2 Flow Rate FiO2 02/08/17 02:58 37.1 64 16 92/57 94 Room Air 02/07/17 17:00 2.00 Intake and Output 02/07/17 02/07/17 02/08/17 Cumulative From/Thru 15:00 23:00 07:00 02/07/17 11:31 - 02/08/17 06:20 Intake Total 847 ml 847 ml Output Total 500 ml 500 ml Balance 347 ml 347 ml Intake Oral 200 ml 200 ml IV Total 647 ml 647 ml Output Urine Total 500 ml 500 ml # Voids 2 2 Exam General: Thin and pale elderly woman sitting up eating breakfast, appropriately interactive, in no acute distress HEENT: Normocephalic, atraumatic. PERRLA, no scleral icterus, moist mucosa. Neck: Supple with full range of motion. No JVD, no bruits, lymphadenopathy or thyromegaly. Cardiovascular: Regular rate and rhythm with no murmurs, rubs, or gallops appreciated. Pulmonary: Clear to auscultation bilaterally with no crackles, wheezes, or rhonchi. Normal respiratory effort with no use of accessory muscles. Abdomen: Soft, nontender, nondistended no hepatosplenomegaly or masses appreciated. Bowel tones present. Extremities: No clubbing, cyanosis, edema, or lymphadenopathy appreciated. Skin: Normal temperature, turgor, and texture; no rash, ulcers, or subcutaneous nodules appreciated. Neurological: Cranial nerves grossly intact. No focal deficits appreciated. Psychiatric: Normal mood and affect IVs and Medications Medications Reviewed: Medications were reviewed in detail Lab and Diagnostics Laboratory Tests Test 02/07/17 17:08 02/07/17 19:20 02/07/17 22:50 02/08/17 04:00 Hemoglobin A1c 5.1% (4.8-5.6) Magnesium Level 1.8mg/dL (1.6-2.6) Total Creatine Kinase 2974U/L (21-215) 2439U/L (21-215) 1623U/L (21-215) Creatine Kinase MB 325.2ng/mL (0.0-5.3) 272.3ng/mL (0.0-5.3) 170.1ng/mL (0.0-5.3) Creatine Kinase MB % 10.9% (0.0-5.0) 11.2% (0.0-5.0) 10.5% (0.0-5.0) Troponin T 10.54ug/L (0.0-0.011) 4.52ug/L (0.0-0.011) 3.36ug/L (0.0-0.011) Thyroid Stimulating Hormone (TSH) 3.330uIU/mL (0.450-4.500) White Blood Count 8.7th/mm3 (3.8-10.1) Red Blood Count 3.61mil/mm3 (3.90-5.20) Hemoglobin 10.8g/dL (12.0-15.6) Hematocrit 32.0% (35.0-46.0) Mean Corpuscular Volume 88.6fL (81-100) Mean Corpuscular Hemoglobin 29.9pg (27.0-35.0) Mean Corpuscular Hemoglobin Concent 33.8% (32.0-37.0) Red Cell Distribution Width 12.9% (12.3-15.4) Platelet Count 186bil/L (150-400) Neutrophils (%) (Auto) 72.5% (40-74) Lymphocytes (%) (Auto) 18.1% (14-46) Monocytes (%) (Auto) 9.1% (4-12) Eosinophils (%) (Auto) 0.1% (0-5) Basophils (%) (Auto) 0.1% (0-3) Sodium Level 135mEq/L (134-144) Potassium Level 4.2mEq/L (3.5-5.2) Chloride Level 103mEq/L (97-108) Carbon Dioxide Level 18mmol/L (18-29) Blood Urea Nitrogen 11mg/dL (8-27) Creatinine 0.63mg/dL (0.57-1.00) Estimat Glomerular Filtration Rate 135mL/min (>59) Glucose Level 120mg/dL (60-99) Calcium Level 8.7mg/dL (8.5-10.1) Triglycerides Level 131mg/dL (0-149) Cholesterol Level 129mg/dL (100-199) LDL Cholesterol, Calculated 49.800mg/dL (0-99) VLDL Cholesterol 26.200mg/dL HDL Cholesterol 53mg/dL (>39) Cholesterol/HDL Ratio 2.43 (0.0-4.4) Result Diagram: 02/08/17 04002/08/17 040 X-Rays, CTs and MRIs No new imaging X-RAY CHEST ONE VIEW, PORTABLE IMPRESSION: No acute pulmonary process. Dictated by: Michelle Horton M.D. on 02/07/2017 at 12:02 Approved by: Michelle Horton M.D. on 02/07/2017 at 12:02 CT BRAIN WITHOUT CONTRAST IMPRESSION: 1. No acute intracranial hemorrhage. 2. Postoperative changes involving the left frontal region with a large extra- axial fluid collection is similar to prior studies. 3. Extensive chronic small vessel ischemic changes and areas of encephalomalacia within the bilateral frontal lobes, predominately. Dictated by: Conor Blanco M.D. on 02/07/2017 at 11:56 Approved by: Conor Blanco M.D. on 02/07/2017 at 12:01 Additional Diagnostics 02/07/2017. Fantasma Rodríguez MD Retrograde left heart catheterization 1. 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 2. 60% proximal right coronary artery stenosis. 3. Left ventricular ejection fraction 35%. 4. LVEDP is 28 mmHg. Assessment & Plan 66 y/o female with a hx of breast and brain cancer s/p surgical interventions, reportedly in remission since 2014, dementia, hyperlipidemia, and seizures who presented to the ED with the complaint of shakiness and chest heaviness that started earlier today. Admitted for further evaluation and management of NSTEMI. Hospital day #2. 1. NSTEMI, acute. present on admission. Improved -s/p LAD stents placement. Two drug-eluting stents and one bare-metal stent. -Will continue aspirin/plavix, statin and anticoagulation, per Cardiology. 2. Acute systolic CHF, present on admission. Active -Likely secondary to ischemia. LVEF 35% noted during left heart cath. -Echocardiogram today. -Continue spironolactone, captopril, carvedilol. Per Cardiology. 3. Seizure disorder, chronic. present on admission. Ongoing -CT head negative for acute process. -Continue home Keppra -Seizure precautions, monitor clinically 4. Hyperlipidemia, chronic. present on admission. Ongoing. -Continue home statin 5. Hyperglycemia without diagnosis of diabetes, present on admission. Active. -Patient's daughter denies history of diabetes. Serum glucose 151. -Follow CMP, check HbA1c 6. Dementia, chronic. present on admission. Ongoing -Patient lives locally with her daughter and reportedly needs assistance for nearly all ADLs -Social work consult placed to discuss resources and possible home health options. -Swallow evaluation today, history of dysphagia noted by family. PRN: Acetaminophen-fever/headache/mild/moderate pain Antiemetics, as needed Bowel regimen, as needed. Disposition: Patient will likely discharge in 1-2 days pending echocardiogram results and transition to oral anticoagulation prior to discharge. . GI Prophylaxis: Not indicated VTE Prophylaxis: SCDs Resuscitation Status: CPR: Attempt Resuscitation Attending Statement The patient was seen and examined together with Dr. Mccain on 02/08/2017 and I agree with the history, exam and plan as outlined in the note above. . Cammy Mccain DO February 08, 2017 07:56 Steven Maxwell MD February 10, 2017 19:12
[2017-02-08] MEDS: Dabigatran 150 mg Capsule PO SCH (20:26)
[2017-02-09] VITALS (7 sets, daily range): BP systolic 85–114; BP diastolic 52–69; PULSE 60–72; RESP 15–20; O2SAT 94–97
[2017-02-09 04:35] LABS: Mean Corpuscular Hemoglobin 29.5 pg (27.0-35.0); Mean Corpuscular Volume 88.9 fL (81-100)
[2017-02-09] MEDS: levETIRAcetam 500 mg Tablet PO SCH (09:04)
[2017-02-09] MEDS: Dabigatran 150 mg Capsule PO SCH (09:04)
--- NOTE | 2017-02-09 09:21 | PCM.PNMED ---
Subjective Date of Service February 09, 2017 Subjective Patient is a 66-year-old female with a history of breast and brain cancer s/p surgical interventions, reportedly in remission since 2015, dementia, hyperlipidemia, and seizures who presented to the ED with the complaint of shakiness, voice changes and chest pain that started earlier today. Admitted for further evaluation and management of NSTEMI. Hospital day #3. No acute events overnight. Patient slightly hypotensive with ambulation yesterday. Swallow evaluation completed and recommend thin/soft with alternating liquids and solids, small bites/sips. Today patient states that she is doing well and is without complaint. She denies chest pain, shortness of breath, dizziness, nausea or vomiting. Exam Vital Signs Vital Sign - Last Date Time Temp Pulse Resp B/P Pulse Ox O2 Delivery O2 Flow Rate FiO2 02/09/17 08:58 37.2 65 16 104/58 95 Room Air 02/07/17 17:00 2.00 Intake and Output 02/08/17 02/08/17 02/09/17 Cumulative From/Thru 15:00 23:00 07:00 02/07/17 11:31 - 02/09/17 05:58 Intake Total 1000 ml 200 ml 2047 ml Output Total 700 ml 500 ml 1700 ml Balance 300 ml -300 ml 347 ml Intake Oral 1000 ml 200 ml 1400 ml IV Total 647 ml Output Urine Total 700 ml 500 ml 1700 ml # Voids 2 # Bowel Movements 1 1 Exam General: Thin and pale elderly woman sitting up visiting with family, appropriately interactive, in no acute distress HEENT: Normocephalic, atraumatic. PERRLA, no scleral icterus, moist mucosa. Cardiovascular: Regular rate and rhythm with no murmurs, rubs, or gallops appreciated. Pulmonary: Clear to auscultation bilaterally with no crackles, wheezes, or rhonchi. Abdomen: Soft, nontender, nondistended no hepatosplenomegaly or masses appreciated. Bowel tones present. Extremities: No clubbing, cyanosis, edema, or lymphadenopathy appreciated. Skin: Normal temperature, turgor, and texture; no rash, ulcers, or subcutaneous nodules appreciated. Neurological: Cranial nerves grossly intact. No focal deficits appreciated. Psychiatric: Normal mood and affect IVs and Medications Medications Reviewed: Medications were reviewed in detail Medications Acetaminophen 650 mg Q6H PRN Atorvastatin Calcium 10 mg HS PO Captopril 3.125 mg BID PO Carvedilol 3.125 mg BIDWM PO Citalopram 20 mg DAILY PO Clopidogrel 75 mg DAILY PO Dabigatran 150 mg BID PO Levetriacetam 500 mg BID PO Spironolactone 12.5 mg DAILY PO Lab and Diagnostics Laboratory Tests Test 02/09/17 04:10 White Blood Count 6.8th/mm3 (3.8-10.1) Red Blood Count 3.52mil/mm3 (3.90-5.20) Hemoglobin 10.4g/dL (12.0-15.6) Hematocrit 31.3% (35.0-46.0) Mean Corpuscular Volume 88.9fL (81-100) Mean Corpuscular Hemoglobin 29.5pg (27.0-35.0) Mean Corpuscular Hemoglobin Concent 33.2% (32.0-37.0) Red Cell Distribution Width 12.8% (12.3-15.4) Platelet Count 180bil/L (150-400) Sodium Level 136mEq/L (134-144) Potassium Level 4.1mEq/L (3.5-5.2) Chloride Level 102mEq/L (97-108) Carbon Dioxide Level 21mmol/L (18-29) Blood Urea Nitrogen 14mg/dL (8-27) Creatinine 0.70mg/dL (0.57-1.00) Estimat Glomerular Filtration Rate 119mL/min (>59) Glucose Level 106mg/dL (60-99) Calcium Level 8.5mg/dL (8.5-10.1) Microbiology 02/07/17 MRSA (PCR) - negative Result Diagram: 02/09/17 0410 02/09/17 0410 X-Rays, CTs and MRIs No new imaging X-RAY CHEST ONE VIEW, PORTABLE IMPRESSION: No acute pulmonary process. Dictated by: Michelle Horton M.D. on 02/07/2017 at 12:02 Approved by: Michelle Horton M.D. on 02/07/2017 at 12:02 CT BRAIN WITHOUT CONTRAST IMPRESSION: 1. No acute intracranial hemorrhage. 2. Postoperative changes involving the left frontal region with a large extra- axial fluid collection is similar to prior studies. 3. Extensive chronic small vessel ischemic changes and areas of encephalomalacia within the bilateral frontal lobes, predominately. Dictated by: Conor Blanco M.D. on 02/07/2017 at 11:56 Approved by: Conor Blanco M.D. on 02/07/2017 at 12:01 Cardiac Echo Impressions Echocardiogram (02/09/2017) Interpretation Summary -Normal left ventricle size with ejection fraction 30-35%. -The apical 2/3 of anterior wall, septum and apex are akinetic. -Mildly dilated left atrium. -Mild to moderate tricuspid regurgitation. -The right ventricular systolic pressure is estimated at 42 mmHg assuming a right atrial pressure of 15 mm Hg. Fantasma Boyce on Reading Physician:02/08/2017 01:23 PM Additional Diagnostics 02/07/2017. Fantasma Rodríguez MD Retrograde left heart catheterization 1. 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 2. 60% proximal right coronary artery stenosis. 3. Left ventricular ejection fraction 35%. 4. LVEDP is 28 mmHg. Assessment & Plan 66 y/o female with a hx of breast and brain cancer s/p surgical interventions, reportedly in remission since 2014, dementia, hyperlipidemia, and seizures who presented to the ED with the complaint of shakiness and chest heaviness that started earlier today. Admitted for further evaluation and management of NSTEMI. Hospital day #3. 1. NSTEMI, acute. present on admission. Improved -s/p LAD stents placement. Two drug-eluting stents and one bare-metal stent. -Will continue dabigatran, plavix, and statin, per Cardiology. 2. Acute systolic CHF, present on admission. Active -Likely secondary to ischemia. LVEF 35% noted during left heart cath. -Echocardiogram 02/08/2017. EF 30-35%, akinesis of anterior wall noted -Continue spironolactone, captopril, carvedilol. Per Cardiology. 3. Seizure disorder, chronic. present on admission. Ongoing -CT head negative for acute process. -Continue home Keppra -Seizure precautions, monitor clinically 4. Hyperlipidemia, chronic. present on admission. Ongoing. -Continue home statin 5. Hyperglycemia without diagnosis of diabetes, present on admission. Active. -Patient's daughter denies history of diabetes. Serum glucose 151. -Follow CMP -HbA1c pending 6. Dementia, chronic. present on admission. Ongoing -Patient lives locally with her daughter and reportedly needs assistance for nearly all ADLs -Social work consult placed to discuss resources and possible home health options. -Swallow evaluation unremarkable PRN: Acetaminophen-fever/headache/mild/moderate pain Antiemetics, as needed Bowel regimen, as needed. Disposition: Patient will likely discharge in today or tomorrow pending arrangement of home health services and transition to oral anticoagulation prior to discharge. Pain Evaluation: Adequate Pain Control GI Prophylaxis: Not indicated VTE Prophylaxis: SCDs Resuscitation Status: CPR: Attempt Resuscitation Attending Statement The patient was seen and examined together with Dr. Mccain on 02/09/2017 and I agree with the history, exam and plan as outlined in the note above. . Cammy Mccain DO February 09, 2017 09:06 Steven Maxwell MD February 10, 2017 19:14
[2017-02-09] MEDS ORDERED: CAPT12.52 PO (10:07)
[2017-02-09] MEDS ORDERED: DABI150C PO (10:07)
[2017-02-09] MEDS ORDERED: SPIR25TA PO (10:07)
[2017-02-09] MEDS ORDERED: CARV3.122 PO (10:07)
--- NOTE | 2017-02-09 10:09 | PROG NOTE ---
[address] [address] PROGRESS NOTE PATIENT: PATY MCDERMOTT : 1950 MR#: [id number] ADMIT: 02/07/2017 JOB ID: [id number] DATE: 02/09/2017 SUBJECTIVE: The patient feels good this morning. She denies chest discomfort, shortness of breath, orthopnea, or PND. She would like to go home. OBJECTIVE: Temperature is 37.2. Blood pressure is 104/58. Pulse 65. Body weight is 59.7 kg. Head and face have normal configuration. Anicteric sclerae. Moist mucosa. Neck supple. No jugular venous distention or carotid bruits. Chest: Normal expansion. Lungs are clear to auscultation. Heart: The first and second heart sounds normal. No murmur. Abdomen: Soft, nontender. Extremities: No clubbing, cyanosis, or edema. Right groin puncture site is excellent. Blood tests show hemoglobin 10.4, WBC 6.8, platelets 180. Sodium 136, potassium 4.1, chloride 102, bicarb 21, BUN 14, creatinine 0.7, glucose 106. Hemoglobin A1c is pending. IMPRESSION: 1. Acute anterolateral myocardial infarction. 2. Status post stent to the left anterior descending artery with three stents. 3. Left ventricular ejection fraction 35%. 4. History of right breast cancer, status post mastectomy, chemotherapy and radiation. 5. History of brain tumor, status post brain surgery twice. 6. Seizure disorder. 7. Hypercholesterolemia. PLAN: The patient could be discharged from the hospital today. She will be referred to outpatient cardiac rehab. She will follow up with me in the outpatient clinic in 4-6 weeks. The patient should be discharged with: 1. Clopidogrel 75 mg once daily. 2. NOAC for three months, in order to prevent left ventricular thrombus. 3. Carvedilol 3.125 mg b.i.d. 4. Captopril 3.125 mg b.i.d. 5. Spironolactone 12.5 mg daily. 6. Lovastatin 40 mg daily. MTDD
[2017-02-09] MEDS ORDERED: APIX5TAB PO (11:42)
[2017-02-09] MEDS ORDERED: CLOP75TA28 PO (16:08)
--- NOTE | 2017-02-09 16:46 | PCM.DIMED ---
Cammy Mccain DO 02/09/17 0954: Discharge Instructions Date of Service February 09, 2017 Dates of Hospitalization February 07, 2017 at 17:38 Discharge Diagnosis Discharge Diagnosis 1. NSTEMI, acute. 2. Acute systolic CHF 3. Seizure disorder, chronic. 4. Hyperlipidemia, chronic. 5. Hyperglycemia 6. Dementia, chronic. Medication Instructions Start taking the following medications: -Carvedilol, 3.125mg by mouth twice daily -Captopril, 3.125mg by mouth twice daily -Eliquis (apixaban), 5mg by mouth twice daily -Plavix (clopidogrel), 75mg by mouth once daily -Spironolactone, 12.5mg by mouth twice daily -Lovastatin 40mg by mouth in the evening. Continue taking the following medications: -Levetiracetam (Keppra), take 500mg by mouth two times a day -Oxybutynin chloride ER, take 5mg by mouth once daily Diet Heart Healthy Activity No restrictions Call your provider Fever or Chills, Shortness of breath, Chest pain, Weakness (unilateral) Patient Instructions Follow up with Cardiology in 4-6 weeks. Follow up with Primary Care Physician in 1-2 weeks. Cardiac rehab. Follow-up Provider: Fantasma Rodríguez MD Follow-up with PCP in: Other (4-6 weeks) Provider: Melisa Vera MD Follow-up in: 1 week Cardiac Rehab: 1 week Steven Maxwell MD 02/10/17 1916: Discharge Instructions Attending's Statement The patient was seen and examined together with Dr. Mccain on 02/09/2017 and I agree with the history, exam and plan as outlined in the note above. . Cammy Mccain DO February 09, 2017 09:54 Steven Maxwell MD February 10, 2017 19:16
--- NOTE | 2017-02-09 17:17 | PCM.DC.MED ---
Discharge Summary Date of Service February 09, 2017 Dates of Hospitalization Date of Hospital Admission February 07, 2017 at 17:38 Date of Discharge: February 09, 2017 Providers: Admitting Physician: Steven Maxwell MD Primary Care Physician: Melisa Vera MD Attending Physician: Steven Maxwell MD Diagnosis at Time of Discharge Diagnosis at Time of Discharge 1. NSTEMI, acute. 2. Acute systolic CHF 3. Seizure disorder, chronic. 4. Hyperlipidemia, chronic. 5. Hyperglycemia 6. Dementia, chronic. Consultations Cardiology (Fantasma Rodríguez MD) Procedures XRay, CTs & MRIs No new imaging X-RAY CHEST ONE VIEW, PORTABLE IMPRESSION: No acute pulmonary process. Dictated by: Michelle Horton M.D. on 02/07/2017 at 12:02 Approved by: Michelle Horton M.D. on 02/07/2017 at 12:02 CT BRAIN WITHOUT CONTRAST IMPRESSION: 1. No acute intracranial hemorrhage. 2. Postoperative changes involving the left frontal region with a large extra- axial fluid collection is similar to prior studies. 3. Extensive chronic small vessel ischemic changes and areas of encephalomalacia within the bilateral frontal lobes, predominately. Dictated by: Conor Blanco M.D. on 02/07/2017 at 11:56 Approved by: Conor Blanco M.D. on 02/07/2017 at 12:01 Cardiac Echo Impression Echocardiogram (02/09/2017) Interpretation Summary -Normal left ventricle size with ejection fraction 30-35%. -The apical 2/3 of anterior wall, septum and apex are akinetic. -Mildly dilated left atrium. -Mild to moderate tricuspid regurgitation. -The right ventricular systolic pressure is estimated at 42 mmHg assuming a right atrial pressure of 15 mm Hg. Fantasma Boyce on Reading Physician:02/08/2017 01:23 PM Other Diagnostics 02/07/2017. Fantasma Rodríguez MD Retrograde left heart catheterization 1. 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 2. 60% proximal right coronary artery stenosis. 3. Left ventricular ejection fraction 35%. 4. LVEDP is 28 mmHg. Brief History Per admission history and physical on 02/07/2017. Patient is a 66-year-old female with a history of breast and brain cancer s/p surgical interventions, reportedly in remission since 2014, dementia, hyperlipidemia, and seizures who presented to the ED with the complaint of shakiness and voice changes that started earlier today. History obtained via chart review and the patient's daughter due to patient cooperation. Per the family, there has been no seizure-like activity today however patient was noted to have labored breathing and difficulty swallowing. In the ED, patient reported moderate-severe chest pressure and pain associated with nausea and shortness of breath. She denied fever, chills, focal weakness, vision changes, headache, GI or symptoms. Patient's daughter reports increasing fatigue and limited activity at home. She states that the patient is home alone during the day and has poor eating habits and requires prompting for the majority of her ADLs. Of note she presented to [facility] in December of this year and transferred to [facility] after CT head with evidence consistent with a subarachnoid hemorrhage. She was reportedly discharged the following day after negative workup for SAH. In the ED, Vitals: temp 35.8, BP 142/94, HR 69, RR 20, 100% on 4L nasal cannula ; Labs: wbc 9.3, Hgb 13.5, Hct 39.2, plts 268, sodium 141, potassium 3.6, chloride4 101, bicarb 19, BUN 11, creatinine 0.78, glucose 151, troponin 0.095, PT/INR 10.0/0.94. ECG sinus rhythm with rate of 86, ST elevation in V2,V3,V4 with ST depression interiorly new compared to prior EKG on 01/02/17. CXR showing no acute cardiopulmonary process and CT head with no acute intracranial findings. Admitted for further evaluation and management of NSTEMI. Hospital Course 66 y/o female with a hx of breast and brain cancer s/p surgical interventions, reportedly in remission since 2014, dementia, hyperlipidemia, and seizures who presented to the ED with the complaint of shakiness and chest heaviness that started earlier today. Admitted for further evaluation and management of NSTEMI. 1. NSTEMI, acute. present on admission. Improved -At presentation, EKG with ST depression inferior leads new from prior EKG. Troponin 0.095. 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 -s/p LAD stents x3 on 02/07/17, two drug-eluting stents and one bare-metal stent. -Patient was started on plavix, carvedilol and captopril per Cardiology. -Transitioned to oral novel anticoagulant prior to discharge with Cardiology recommendation for 3 months. -Hold aspirin for the next three months while patient is taking Eliquis. -Referral to outpatient Cardiac Rehab 2. Acute systolic CHF, present on admission. Active -Likely secondary to ischemia. LVEF 35% noted during left heart cath. -Echocardiogram 02/08/2017. EF 30-35%, akinesis of anterior wall noted -Patient to continue spironolactone, captopril, and carvedilol and follow up with Cardiology in 4-6weeks. 3. Seizure disorder, chronic. present on admission. Ongoing -CT head was negative for acute process and patient continued on home Keppra. -Patient remained stable with seizures throughout course of hospital stay. 4. Hyperlipidemia, chronic. present on admission. Ongoing. -Continued home statin 5. Hyperglycemia without diagnosis of diabetes, present on admission. Improved -Patient's daughter denied history of diabetes. Serum glucose 151 on admission and 106 prior to discharge. -Followed CMP and HbA1c still pending at time of discharge. -Recommend follow up with PCP. 6. Dementia, chronic. present on admission. Ongoing -Patient lives locally with her daughter and reportedly needs assistance for nearly all ADLs -Social work consulted and home health arrangements made prior to discharge. Exam Vital Signs (Last) Date Time Temp Pulse Resp B/P Pulse Ox O2 Delivery O2 Flow Rate FiO2 02/09/17 16:38 36.7 68 15 85/57 95 Room Air 02/07/17 17:00 2.00 Exam General: Thin and pale elderly woman sitting up visiting with family, appropriately interactive, in no acute distress HEENT: Normocephalic, atraumatic. PERRLA, no scleral icterus, moist mucosa. Cardiovascular: Regular rate and rhythm with no murmurs, rubs, or gallops appreciated. Pulmonary: Clear to auscultation bilaterally with no crackles, wheezes, or rhonchi. Abdomen: Soft, nontender, nondistended no hepatosplenomegaly or masses appreciated. Bowel tones present. Extremities: No clubbing, cyanosis, edema, or lymphadenopathy appreciated. Skin: Normal temperature, turgor, and texture; no rash, ulcers, or subcutaneous nodules appreciated. Neurological: Cranial nerves grossly intact. No focal deficits appreciated. Psychiatric: Normal mood and affect Test 02/07/17 11:42 02/07/17 11:43 02/07/17 19:20 02/08/17 04:00 Prothrombin Time 10.0sec (8.1-12.5) Prothromb Time International Ratio 0.94ratio Activated Partial Thromboplast Time 21.5sec (22.8-33.0) D-Dimer < 0.50mg/L FEU (<0.50) Total Bilirubin 0.6mg/dL (0.0-1.2) Aspartate Amino Transf (AST/SGOT) 25U/L (0-50) Alanine Aminotransferase (ALT/SGPT) 13U/L (0-32) Alkaline Phosphatase 79U/L (25-165) Total Protein 7.1g/dL (6.4-8.4) Albumin 4.5g/dL (3.4-5.0) Hold Buckley Top Tube Received (Received) Magnesium Level 1.8mg/dL (1.6-2.6) Thyroid Stimulating Hormone (TSH) 3.330uIU/mL (0.450-4.500) Neutrophils (%) (Auto) 72.5% (40-74) Lymphocytes (%) (Auto) 18.1% (14-46) Monocytes (%) (Auto) 9.1% (4-12) Eosinophils (%) (Auto) 0.1% (0-5) Basophils (%) (Auto) 0.1% (0-3) Total Creatine Kinase 1623U/L (21-215) Creatine Kinase MB 170.1ng/mL (0.0-5.3) Creatine Kinase MB % 10.5% (0.0-5.0) Troponin T 3.36ug/L (0.0-0.011) Triglycerides Level 131mg/dL (0-149) Cholesterol Level 129mg/dL (100-199) LDL Cholesterol, Calculated 49.800mg/dL (0-99) VLDL Cholesterol 26.200mg/dL HDL Cholesterol 53mg/dL (>39) Cholesterol/HDL Ratio 2.43 (0.0-4.4) Test 02/09/17 04:10 White Blood Count 6.8th/mm3 (3.8-10.1) Red Blood Count 3.52mil/mm3 (3.90-5.20) Hemoglobin 10.4g/dL (12.0-15.6) Hematocrit 31.3% (35.0-46.0) Mean Corpuscular Volume 88.9fL (81-100) Mean Corpuscular Hemoglobin 29.5pg (27.0-35.0) Mean Corpuscular Hemoglobin Concent 33.2% (32.0-37.0) Red Cell Distribution Width 12.8% (12.3-15.4) Platelet Count 180bil/L (150-400) Sodium Level 136mEq/L (134-144) Potassium Level 4.1mEq/L (3.5-5.2) Chloride Level 102mEq/L (97-108) Carbon Dioxide Level 21mmol/L (18-29) Blood Urea Nitrogen 14mg/dL (8-27) Creatinine 0.70mg/dL (0.57-1.00) Estimat Glomerular Filtration Rate 119mL/min (>59) Glucose Level 106mg/dL (60-99) Calcium Level 8.5mg/dL (8.5-10.1) Discharge Medications Discharge Medications Apixaban (Eliquis) 5 Mg Tablet 5 MG PO BID Prescribed by: JOSE HUMPHREYS DO Captopril (Captopril) 12.5 Mg Tablet 3.125 MG PO BID Prescribed by: JOSE HUMPHREYS DO Carvedilol (Carvedilol) 3.125 Mg Tablet 3.125 MG PO BIDWM Prescribed by: JOSE HUMPHREYS DO Citalopram (Citalopram) 20 Mg Tablet 20 MG PO DAILY (Reported) Clopidogrel (Clopidogrel) 75 Mg Tablet 75 MG PO DAILY Prescribed by: JOSE HUMPHREYS DO Levetiracetam (Keppra) 500 Mg Tablet 500 MG PO BID Prescribed by: CLAUDIO LIZARRAGA MD Lovastatin (Lovastatin) 40 Mg Tablet 40 MG PO HS (Reported) Spironolactone (Aldactone) 25 Mg Tablet 12.5 MG PO DAILY Prescribed by: JOSE HUMPHREYS DO Additional med instructions Start taking the following medications: -Carvedilol, 3.125mg by mouth twice daily -Captopril, 3.125mg by mouth twice daily -Eliquis (apixaban), 5mg by mouth twice daily -Plavix (clopidogrel), 75mg by mouth once daily -Spironolactone, 12.5mg by mouth twice daily Continue taking the following medications: -Levetiracetam (Keppra), take 500mg by mouth two times a day -Oxybutynin chloride ER, take 5mg by mouth once daily -Lovastatin 40mg by mouth in the evening. Followup Plan Discharge Diet: Heart Healthy Discharge Activity: No restrictions Patient Instructions Follow up with Cardiology in 4-6 weeks. Follow up with Primary Care Physician in 1-2 weeks. Cardiac rehab. Follow-up Provider: Fantasma Rodríguez MD Follow-up with PCP in: Other (4-6 weeks) Provider: Melisa Vera MD Follow-up in: 1 week Cardiac Rehab: 1 week Time spent Greater than 30 minutes was spent in preparation of discharge with greater than 50% of that time dedicated to patient counseling and coordination of care. . Attending Statement The patient was seen and examined together with Dr. Humphreys on 02/09/2017 and I agree with the history, exam and plan as outlined in the note above. . copies to: Melisa Vera MD, Courtney M DO February 09, 2017 16:51 Steven Maxwell MD February 10, 2017 19:17
== END 2017-02-09 17:17 | disposition home health service (06) | DRG 246 ==
LOC: SED 11:20 → SPI 14:04 → PCC 14:22 → SPI 17:38 → PCC 17:38
PROVIDERS: ADMIT Internal Medicine; ATTEND Internal Medicine
PROC: 027035Z Dilation of Coronary Artery, One Artery with Two Drug-eluting Intraluminal Devices, Percutaneous Approach (ICD-10-PCS; principal; 2017-02-07)
PROC: 02703DZ Dilation of Coronary Artery, One Artery with Intraluminal Device, Percutaneous Approach (ICD-10-PCS; 2017-02-07)
PROC: 4A023N7 Measurement of Cardiac Sampling and Pressure, Left Heart, Percutaneous Approach (ICD-10-PCS; 2017-02-07)
PROC: B2111ZZ Fluoroscopy of Multiple Coronary Arteries using Low Osmolar Contrast (ICD-10-PCS; 2017-02-07)
PROC: B2151ZZ Fluoroscopy of Left Heart using Low Osmolar Contrast (ICD-10-PCS; 2017-02-07)
DX: I21.4 Non-ST elevation (NSTEMI) myocardial infarction (principal); I50.21 Acute systolic (congestive) heart failure; I25.10 Atherosclerotic heart disease of native coronary artery without angina pectoris; F03.90 Unspecified dementia, unspecified severity, without behavioral disturbance, psychotic disturbance, mood disturbance, and anxiety; G40.909 Epilepsy, unspecified, not intractable, without status epilepticus; R73.9 Hyperglycemia, unspecified; E78.5 Hyperlipidemia, unspecified; Z85.3 Personal history of malignant neoplasm of breast; Z85.841 Personal history of malignant neoplasm of brain